=== PATIENT | female | born 1980 | race Caucasian/White ===

== ENCOUNTER 2016-10-14 08:35 | Emergency (ER) | payer OTHER ==
--- NOTE | 2016-10-14 09:26 | ED ---
Upper Extremity HPI - General Chief Complaint: Extremity Injury, Upper Stated Complaint: elbow pain,vomiting Time Seen by Provider: 10/14/16 08:46 Source: patient, RN notes reviewed Mode of arrival: ambulatory Limitations: no limitations - History of Present Illness Initial Comments: Patient is a 36-year-old female presents to the emergency room for evaluation of left elbow pain. Patient states yesterday while at work she noticed that her left elbow became painful during movement. Patient states her elbow appears red and a little swollen. Patient states she hasn't been able to sleep all night due to pain so she decided to come in this morning. Patient states she has been taking 800 mg ibuprofen with no relief of symptoms. Patient denies recent trauma or injury to her elbow. Patient denies recent heavy lifting. Patient denies any recent insect bites. Patient denies IV drug use. Patient denies recent blood work or IV done in her left arm. Patient denies any fevers or chills. Patient denies numbness or tingling in her arm. - Related Data Home Medications Medication Instructions Recorded Confirmed Ibuprofen [Motrin] 800 mg PO Q6HR PRN 10/14/16 10/14/16 Allergies Allergy/AdvReac Type Severity Reaction Status Date / Time latex Allergy Swelling/Bl Verified 10/14/16 15:38 isters/Rash sulfamethoxazole AdvReac Hallucinati Verified 10/14/16 15:38 [From Bactrim] ons trimethoprim [From Bactrim] AdvReac Hallucinati Verified 10/14/16 15:38 ons Review of Systems ROS Statement: Those systems with pertinent positive or pertinent negative responses have been documented in the HPI. ROS Other: All systems not noted in ROS Statement are negative. Past Medical History Past Medical History: No Reported History History of Any Multi-Drug Resistant Organisms: None Reported Past Surgical History: No Surgical Hx Reported Past Psychological History: Anxiety Smoking Status: Current every day smoker Past Alcohol Use History: Occasional Past Drug Use History: None Reported General Exam - General Exam Comments Initial Comments: Sitting in exam room in no acute distress. Limitations: no limitations General appearance: alert, in no apparent distress Head exam: Present: atraumatic, normocephalic, normal inspection Eye exam: Present: normal appearance ENT exam: Present: normal exam Neck exam: Present: normal inspection Respiratory exam: Absent: respiratory distress Left Elbow exam: Present: full ROM, tenderness (Tenderness and slight erythema over the lateral epicondyle). Absent: normal inspection Forearm Wrist exam: Present: normal inspection, full ROM. Absent: tenderness Hand Wrist exam: Present: normal inspection, full ROM. Absent: tenderness Neuro motor exam: Present: wrist extension intact, thumb opposition intact, thumb IP flexion intact, thumb adduction intact, fingers 2-5 abduction intact Vascular: Present: normal capillary refill (Capillary refill less than 2 seconds ), radial pulse (2+), ulnar pulse (2+) Back exam: Present: normal inspection Neurological exam: Present: alert, oriented X3, CN II-XII intact, normal gait Psychiatric exam: Present: normal affect, normal mood Skin exam: Present: warm, dry, intact. Absent: rash Course Vital Signs 10/14/16 10/14/16 10/14/16 08:37 10:51 11:18 Temperature 97.5 F L 98.3 F 98.2 F Pulse Rate 74 67 68 Respiratory 16 18 20 Rate Blood Pressure 133/72 128/72 116/68 O2 Sat by Pulse 100 99 99 Oximetry Medical Decision Making - Medical Decision Making Patient is a 36-year-old female presents to the emergency room for evaluation of nontraumatic left elbow pain and erythema. Patient does have erythema in the lateral epicondyle area. Left elbow x-ray significant for anterior fat pad sign. Case discussed with TIGRE Avilez at [facility]. Patient will be seen at [facility] after 1 PM this afternoon for further evaluation. Results discussed with patient. Patient states she understands everything that was discussed with her. Return parameters discussed. Case discussed with Dr. Alcaraz. - Radiology Data Radiology results: report reviewed, image reviewed Disposition Clinical Impression: Effusion of elbow joint, left Disposition: HOME SELF-CARE Condition: Good Instructions: Swollen Joint (ED) Additional Instructions: Please follow-up with [facility] after 1 PM this afternoon. If any new symptom arises or symptoms worsen, return to ER as soon as possible. Referrals: Marcus Ogden MD [STAFF PHYSICIAN] - 1-2 days Time of Disposition: 11:04
--- NOTE | 2016-10-14 09:51 | XR ---
EXAMINATION TYPE: XR elbow complete LT DATE OF EXAM: 10/14/2016 9:39 AM COMPARISON: NONE HISTORY: Pain FINDINGS: Three views of the elbow demonstrate pathologic joint effusion. No definite fracture line seen. IMPRESSION: 1. Pathologic joint effusion. This can be seen with joint effusion could be postinflammatory or posti nfectious. Occult fracture also in the differential diagnosis correlate with the patient's history.
[2016-10-14] MEDS ORDERED: KETOROLAC 60 MG/2 ML VIAL IM STA (11:02)
[2016-10-14 11:20] VITALS: BP 116/68; PULSE 68; RESP 20; TEMP 98.2
== END 2016-10-14 11:18 | disposition home or self-care (01) ==
LOC: EC 08:35
DX: M25.422 Effusion, left elbow (principal); F17.200 Nicotine dependence, unspecified, uncomplicated; Z91.040 Latex allergy status; Z88.2 Allergy status to sulfonamides
CPT/HCPCS: 96372 ×2; 99283 ×2; 73080; J1885

== ENCOUNTER 2016-10-14 13:41 | Inpatient (IN) | payer OTHER ==
[2016-10-14] MEDS ORDERED: IBUPROFEN 400 MG TAB PO PRN (13:56)
[2016-10-14] MEDS ORDERED: TEMAZEPAM 15 MG CAP PO PRN (13:56)
[2016-10-14] MEDS ORDERED: HYDROmorphone 1 MG/ML 1 ML SYRINGE IV PRN (13:56)
[2016-10-14] MEDS ORDERED: ACETAMINOPHEN TAB 325 MG TAB PO PRN (13:56)
[2016-10-14] MEDS ORDERED: BISACODYL 10 MG SUPP RECTAL PRN (13:56)
[2016-10-14] MEDS ORDERED: NALOXONE 0.4 MG/ML 1 ML VIAL IV PRN (13:56)
[2016-10-14] MEDS ORDERED: CALCIUM CARBONATE 500 MG CHEWABLE PO PRN (13:56)
[2016-10-14] MEDS ORDERED: ONDANSETRON 4 MG/2 ML VIAL IVP PRN (13:56)
[2016-10-14] MEDS ORDERED: MAGNESIUM HYDROXIDE 2,400 MG/10 ML CUP PO PRN (13:56)
[2016-10-14] MEDS ORDERED: BISACODYL 5 MG TABLET.DR PO PRN (13:56)
[2016-10-14] MEDS ORDERED: SODIUM CHLORIDE 0.9% 1,000 ML IV SCH (14:00)
[2016-10-14 14:15] VITALS: RESP 16
[2016-10-14 14:17] VITALS: BMI 21.9
[2016-10-14] MEDS: HYDROcodone/APAP 5-325MG 1 EACH TAB PO PRN ×2 (14:25→18:22)
[2016-10-14 16:02] LABS: ALT 31 U/L (9-52); AST 23 U/L (14-36); Alkaline Phosphatase 45 U/L (38-126); Anion Gap 8 mmol/L; Basophils % (A) 1 %; Blood Urea Nitrogen 15 mg/dL (7-17); C Reactive Protein 14.8 mg/L (<10.0); CH 30.4; CHCM 33.1; Calcium 8.9 mg/dL (8.4-10.2); Carbon Dioxide 26 mmol/L (22-30); Chloride 104 mmol/L (98-107); Eosinophils # (A) 0.1 k/uL (0-0.7); Eosinophils % (A) 1 %; Glucose 91 mg/dL (74-99); HDW 2.21; Luc # (Auto) 0.12; Luc % (Auto) 1; Lymphocytes # (A) 1.3 k/uL (1.0-4.8); Lymphocytes % (A) 14 %; MCH 30.7 pg (25.0-35.0); MCHC 33.3 g/dL (31.0-37.0); MCV 92.1 fL (80.0-100.0); Mean Platelet Volume 7.3; Monocytes # (A) 0.6 k/uL (0-1.0); Monocytes % (A) 7 %; Neutrophils # (A) 7.4 k/uL (1.3-7.7); Neutrophils % (A) 77 %; Non-African American GFR(MDRD) >60 (>60 ml/min/1.73 sqM); Potassium 4.3 mmol/L (3.5-5.1); RBC 4.55 m/uL (3.80-5.40); RDW 12.2 % (11.5-15.5); Sodium 138 mmol/L (137-145); Total Bilirubin 0.8 mg/dL (0.2-1.3); Total Protein 6.8 g/dL (6.3-8.2); Uric Acid 4.7 mg/dL (3.7-7.4); WBC 9.6 k/uL (3.8-10.6)
[2016-10-14 16:03] LABS: Rheumatoid Factor, Qnt <9 IU/mL (<12)
[2016-10-14] MEDS: ceFAZolin 2 GM in SODIUM CHLORIDE 0.9% 100 ML IVPB SCH (16:28)
[2016-10-14 16:57] LABS: Erythrocyte Sedimentation Rate 2 mm/hr (0-20)
[2016-10-14] MEDS: PANTOPRAZOLE 40 MG TABLET PO SCH (18:00)
[2016-10-14 18:51] LABS: Amorphous Sediment,Urine Occasional /hpf; Appearance,Urine Cloudy (Clear); Bilirubin,Urine Negative (Negative); Glucose,Urine (UA) Negative (Negative); Ketones,Urine Negative (Negative); Leukocyte Esterase,Urine Negative (Negative); Mucus,Urine Many /hpf; Nitrite,Urine Negative (Negative); Particle Count 10816; Protein,Urine 1+ (Negative); RBC,Urine 1 /hpf (0-5); Specific Gravity,Urine 1.032 (1.001-1.035); Squamous Epithelial Cell,Urine 9 /hpf (0-4); UA Billing (MACRO vs. MICRO) MICRO; WBC,Urine 10 /hpf (0-5)
[2016-10-14] MEDS: HEPARIN SODIUM,PORCINE 5,000 UNIT/ML 1 ML VIAL SQ SCH (21:08)
--- NOTE | 2016-10-14 22:03 | CONS ---
DATE OF CONSULTATION: 10/14/2016 REASON FOR CONSULTATION: Advice regarding nicotine dependence, anxiety and other medical issues, requested by [facility]. HISTORY OF PRESENT ILLNESS: This 36-year-old woman with a past medical history of endometriosis, history of DJD, history of anxiety, history of nicotine dependence, being followed by no primary physician in the outpatient setting, was complaining of pain and swelling of the left elbow while at work yesterday. The patient works as a certified medical technician. The elbow appeared red and swollen. The patient was taking Motrin 800 mg. Because of recurrent pain, patient came to the emergency room and was subsequently [facility], who admitted the patient for further evaluation and treatment. There is no history of any fever, rigor, or chills. No history of any headache, loss of consciousness, seizures. PAST MEDICAL HISTORY: 1. Endometriosis. 2. History of appendectomy. 3. History of anxiety. 4. History of nicotine dependence. HOME MEDICATIONS: Motrin 800 mg t.i.d. p.r.n. ALLERGIES: LATEX and BACTRIM. FAMILY HISTORY: History of cancer, diabetes mellitus, hypertension, heart disease. SOCIAL HISTORY: History of smoking on a daily basis. No history of alcohol intake. REVIEW OF SYSTEMS: ENT: No diminished hearing. No diminished vision. CARDIOVASCULAR: No angina, palpitations. RESPIRATORY: No cough, hemoptysis. GI: No nausea, vomiting. : No dysuria. NERVOUS SYSTEM: No numbness or weakness. ALLERGY/IMMUNOLOGY: No asthma, hayfever. MUSCULOSKELETAL: As mentioned earlier. HEMATOLOGY/ONCOLOGY: No history of anemia. ENDOCRINE: No history of diabetes, hypothyroidism. CONSTITUTIONAL: As mentioned earlier. DERMATOLOGY: Negative. RHEUMATOLOGY: Negative. PSYCHIATRY: As mentioned earlier. PHYSICAL EXAMINATION: Patient is alert and oriented x3. Pulse 69, blood pressure 120/80, respiratory rate 16, temperature 98 degrees, pulse ox 98% on room air. HEENT: Conjunctivae normal. Oral mucosa moist. NECK: No jugular venous distention. No carotid bruit. No lymph node enlargement. CARDIOVASCULAR SYSTEM: S1, S2 muffled. No S3. No S4. RESPIRATORY: Breath sounds diminished at the bases. No rhonchi. No crackles. ABDOMEN: Soft, nontender. No mass palpable. LEGS: No edema. No swelling. Left arm is bandaged. Significant pain and swelling of the left elbow joint. NERVOUS SYSTEM: Higher functions as mentioned earlier. Moves all 4 limbs. No focal motor or sensory deficit. LYMPHATICS: No lymph node palpable in neck, axillae or groin. SKIN: As mentioned earlier. JOINTS: No active deforming arthropathy. ASSESSMENT: 1. Left elbow septic arthritis. 2. Increased CRP. 3. Mild thrombocytopenia. 4. History of endometriosis. 5. History of degenerative joint disease. 6. History of nicotine dependence. 7. FULL CODE. RECOMMENDATIONS AND DISCUSSION: In this 36-year-old woman who presented with multiple complex medical issues, we are going to continue current medications, continue symptomatic treatment. Otherwise, DVT prophylaxis, pain medications. Empiric antibiotic cefazolin has been initiated. Will follow the patient closely with you. Patient may be asked to follow up with a primary physician closely after discharge. Thank you for letting us participate in the care of this patient. JENNIFER
[2016-10-15] MEDS: ceFAZolin 2 GM in SODIUM CHLORIDE 0.9% 100 ML IVPB SCH ×2 (00:51→10:33)
[2016-10-15] MEDS: HYDROcodone/APAP 5-325MG 1 EACH TAB PO PRN ×2 (02:40→10:03)
[2016-10-15 02:41] VITALS: PULSE 62
--- NOTE | 2016-10-15 08:27 | P.HPOR ---
History of Present Illness H&P Date: 10/14/16 Chief Complaint: Left elbow cellulitis This is a 36-year-old female who originally presented to the emergency department on 10/14/2016 with complaint of fairly sudden onset of left elbow pain and swelling. She had developed some redness over the past couple of days and increased swelling and pain. She denies any recent trauma that she is aware of. She works as a medical numerical control operator. She denies fever but has had recent chills. She states that she had some vomiting in the morning. She was sent from the emergency department to our office for evaluation. Past Medical History Past Medical History: No Reported History Additional Past Medical History / Comment(s): Endometriosis, High risk HPV, History of Any Multi-Drug Resistant Organisms: None Reported Past Surgical History: No Surgical Hx Reported, Appendectomy, Orthopedic Surgery Additional Past Surgical History / Comment(s): x3 Laproscopic surgeries related to endometriosis, Right Ankle Sx (metal in ankle) Past Psychological History: Anxiety Smoking Status: Current every day smoker Past Alcohol Use History: Occasional Past Drug Use History: None Reported - Past Family History Mother History Unknown: Yes Family Medical History: Cancer, Diabetes Mellitus, Hypertension Additional Family Medical History / Comment(s): Heart Disease Father History Unknown: Yes Family Medical History: Diabetes Mellitus, Hypertension Medications and Allergies Home Medications Medication Instructions Recorded Confirmed Type Ibuprofen [Motrin] 800 mg PO TID PRN 10/14/16 10/14/16 History Allergies Allergy/AdvReac Type Severity Reaction Status Date / Time latex Allergy Swelling/Bl Verified 10/14/16 15:38 isters/Rash sulfamethoxazole AdvReac Hallucinati Verified 10/14/16 15:38 [From Bactrim] ons trimethoprim [From Bactrim] AdvReac Hallucinati Verified 10/14/16 15:38 ons Physical Examination This is a pleasant 36-year-old female in no acute distress. She is alert and oriented 3. Exam of the head and neck is unremarkable. No obvious lymphadenopathy noted. She has full cervical spine motion without difficulty or pain. No pain with palpation about cervical spine or paraspinal musculature. Exam of the upper extremities reveals swelling with mild effusion to the left elbow joint. She has erythema about the lateral aspect of the elbow with significant increased warmth to the area. She has flexion to about 90 but lacking about 10-15 of extension. There is pain with forearm rotation. There is mild pain with wrist and finger motion. Radial pulses +2/4. Neurovascular status the upper extremity is intact. Exam the lower extremities is unremarkable. No deformities or abnormalities noted. Results X-rays taken at [facility] on 10/14/2016 reveal no bony abnormality. There are no fractures or dislocations. There is a mild joint effusion noted on x-ray. - Labs Labs: Abnormal Lab Results - Last 24 Hours (Table) 10/14/16 10/14/16 10/14/16 Range/Units 15:21 15:21 18:25 Plt Count 139 L (150-450) k/uL C-Reactive Protein 14.8 H (<10.0) mg/L Urine Appearance Cloudy H (Clear) Urine Protein 1+ H (Negative) Urine WBC 10 H (0-5) /hpf Ur Squamous Epith Cells 9 H (0-4) /hpf Amorphous Sediment Occasional H (None) /hpf Urine Mucus Many H (None) /hpf Microbiology - Last 24 Hours (Table) 10/14/16 14:00 Gram Stain - Preliminary Aspirate Body Fluid Culture - Preliminary H & H 10/14/16 Range/Units 15:21 Hgb 14.0 (11.4-16.0) gm/dL Hct 42.0 (34.0-46.0) % Result Diagrams: 10/14/16 15:21 10/14/16 15:21 Assessment and Plan (1) Effusion of elbow joint, left Status: Acute (2) Cellulitis of left elbow Status: Acute Plan: The clinical and x-ray findings are discussed the patient. There is concern that she may possibly have a septic arthritis of the elbow versus rheumatologic process. With her significant tenderness, increased warmth and swelling as well as her chills and vomiting, is recommended she be admitted for at least 24 hours to obtain further laboratory studies and try her on some IV antibiotics to see if she responds. The case was discussed with Dr. Ogden who agrees with the plan.
[2016-10-15 08:46] LABS: Basophils % (A) 1 %; CH 30.9; CHCM 33.3; Eosinophils # (A) 0.1 k/uL (0-0.7); Eosinophils % (A) 2 %; HDW 2.24; HGB 13.7 gm/dL (11.4-16.0); Luc # (Auto) 0.17; Luc % (Auto) 3; Lymphocytes # (A) 1.6 k/uL (1.0-4.8); Lymphocytes % (A) 29 %; MCH 31.1 pg (25.0-35.0); MCHC 33.4 g/dL (31.0-37.0); MCV 93.3 fL (80.0-100.0); Mean Platelet Volume 8.4; Monocytes # (A) 0.6 k/uL (0-1.0); Monocytes % (A) 11 %; Neutrophils # (A) 2.9 k/uL (1.3-7.7); Neutrophils % (A) 54 %; RDW 12.1 % (11.5-15.5); WBC 5.5 k/uL (3.8-10.6); WBC (Perox) 5.76
--- NOTE | 2016-10-15 08:56 | P.DS ---
Providers Date of admission: 10/14/16 13:53 Expected date of discharge: 10/15/16 Attending physician: Marcus Ogden Consults: 10/14/16 13:59 Consult Physician Routine Consulting Provider: Adis Cabrera Consult Reason/Comments: medical management Do you want consulting provider notified?: Yes Primary care physician: Stated None - Discharge Diagnosis(es) (1) Effusion of elbow joint, left Current Visit: No Status: Acute (2) Cellulitis of left elbow Current Visit: Yes Status: Acute Hospital Course: This is a 36-year-old female who is admitted on 10/14/2016 with cellulitis of her left elbow. She had presented to the office from the emergency department with swelling and redness to the left elbow with no history of trauma or injury. She was admitted and placed on IV Ancef and pain medication. She is significantly improved today on exam. She has improved range of motion. There is no erythema and diminished swelling to the elbow. She has remained afebrile. Labs are all essentially normal with slight elevation of her CRP. With her improvement today she may be discharged to home with close follow-up. She is also to follow-up with her primary care physician. Plan - Discharge Summary New Discharge Prescriptions: Cefadroxil [Duricef] 500 mg PO Q12HR #20 cap HYDROcodone/APAP 5-325MG [[place] 5] 1 - 2 each PO Q4-6H PRN #60 tab PRN Reason: Pain Naproxen Sodium [Naprelan] 375 mg PO BID #60 tab Discharge Medication List Ibuprofen [Motrin] 800 mg PO TID PRN 10/14/16 [History] Cefadroxil [Duricef] 500 mg PO Q12HR #20 cap 10/15/16 [Rx] HYDROcodone/APAP 5-325MG [[place] 5] 1 - 2 each PO Q4-6H PRN #60 tab 10/15/16 [Rx] Naproxen Sodium [Naprelan] 375 mg PO BID #60 tab 10/15/16 [Rx] Follow up Appointment(s)/Referral(s): Marcus Ogden MD [STAFF PHYSICIAN] - 3 Days Activity/Diet/Wound Care/Special Instructions: Use left arm splint when up and around or working. May remove for range of motion exercises. Discharge Disposition: HOME SELF-CARE
[2016-10-15] MEDS: PANTOPRAZOLE 40 MG TABLET PO SCH (10:13)
[2016-10-15] MEDS: HEPARIN SODIUM,PORCINE 5,000 UNIT/ML 1 ML VIAL SQ SCH (10:14)
[2016-10-15 12:34] VITALS: BP 115/69; TEMP 97.8
--- NOTE | 2016-10-15 19:54 | PN ---
DATE OF SERVICE: 10/15/2016 This 36-year-old woman was admitted with left elbow septic arthritis on empiric antibiotics. The patient improved significantly. No chest pain or palpitations. The patient does not have white count. The patient had minimal UTI. No fever. No cough. On exam, alert and oriented x3. Pulse is 64, blood pressure 115/69, respirations 14, temperature 97.8, pulse ox 98% on room air. HEENT: Conjunctivae normal. NECK: No jugular venous distension. CARDIOVASCULAR: S1 and S2 muffled. RESPIRATORY: Breath sounds diminished in the bases. No rhonchi. No crackles. ABDOMEN: Soft, nontender. LEGS: No edema. No swelling. LEFT ELBOW: Minimally painful; otherwise, no joint swelling is noted. NERVOUS SYSTEM: No focal deficits. LABS: Platelets 132. Labs are noted. ASSESSMENT: 1. Left elbow septic arthritis on empiric antibiotics. 2. Increased CRP. 3. Mild thrombocytopenia, stable. 4. History of endometriosis. 5. Urinary tract infection. 6. History of degenerative joint disease. 7. History nicotine dependence. 8. FULL CODE. RECOMMENDATIONS AND DISCUSSION: Recommend to continue current medications. Continue with symptomatic treatment. Continue with antibiotics. Closely follow with Orthopedic Surgery and primary physician. Further recommendations to follow.
== END 2016-10-15 12:46 | disposition home or self-care (01) | DRG 549 ==
LOC: 3SUR 13:53
PROVIDERS: ADMIT Orthopaedic Surgery; ATTEND Orthopaedic Surgery
DX: M00.9 Pyogenic arthritis, unspecified (principal); L03.114 Cellulitis of left upper limb; D69.6 Thrombocytopenia, unspecified; N39.0 Urinary tract infection, site not specified; F41.9 Anxiety disorder, unspecified; F17.200 Nicotine dependence, unspecified, uncomplicated; Z90.49 Acquired absence of other specified parts of digestive tract; M19.90 Unspecified osteoarthritis, unspecified site; Z88.2 Allergy status to sulfonamides; Z91.040 Latex allergy status
CPT/HCPCS: 80053; 81001; 84550; 85025; 85652; 86140; 86431; 87040; 87070; 87086; 87205; 96372; 99283